=== PATIENT | female | born 1945 | race Caucasian/White ===

== ENCOUNTER → 2017-10-02 | Outpatient (REF) ==
[~2017-10-02] MED LIST: BYSTOLIC PO; CATAPRES 0.1MG0.1 MG PO; HCTZ 25MG25 MG PO; NORVASC PO; PREMARIN 1.251.25 MG PO; TRANDATE 200MG200 MG PO
== END ==
LOC: ZLAB.WCH 17:53
DX: Z01.89 Encounter for other specified special examinations (principal)

== ENCOUNTER → 2018-01-16 | Outpatient (CLI) | payer MEDICARE | LOC: COL.VAS 12:30 | DX: N18.9 Chronic kidney disease, unspecified (principal) | CPT/HCPCS: G0365 ==

== ENCOUNTER → 2018-01-17 | Outpatient (REF) ==
[2018-01-17 18:18] LABS: THYROID STIMULATING HORMONE 1.86 uIU/mL (0.465-4.680)
== END ==
LOC: ZLAB.WCH 17:38
PROVIDERS: Family Medicine
DX: Z01.89 Encounter for other specified special examinations (principal)

== ENCOUNTER 2018-08-14 10:08 | Outpatient (CLI) | payer MEDICARE ==
[2018-08-14] VITALS (9 sets, daily range): BP systolic 97–143; BP diastolic 56–68; PULSE 61–70
[~2018-08-14 10:08] MED LIST changes: -CATAPRES 0.1MG0.1 MG PO; +CATAPRES0.2 MG PO; +COREG12.5 MG PO; +CYMBALTA 30MG30 MG PO; +CYMBALTA 60MG60 MG PO; +GENTAMICIN TOPI15 GM TP; +LIPITOR 40MG TA40 MG PO; +MIRAPEX 0.0.125 MG/T PO; +NORVASC 10MG10 MG PO; -NORVASC PO; +PLAVIX 75MG TAB75 MG PO; +VENTOLIN0.09 MG IH
--- NOTE | 2018-08-14 11:39 | NUR ---
ALL MEDICATIONS GIVEN WITH VORB WITH MD. SEE MERGE FOR ALL MEDICATION ADMIN TIMES. SEE MERGE FOR ALL RASS ASSESSMENTS DURING AND POST PROCEDURE.
--- NOTE | 2018-08-14 12:25 | NUR ---
PT BACK TO ROOM 12 POST AV FISTULOGRAM. VSS AND AX0X3. BAND AID C/D/I TO LEFT ARM FISTULA SITE. RESTING COMFORTABLY IN BED AT THIS TIME.
--- NOTE | 2018-08-14 14:39 | NUR ---
PT VSS AND AX0X3 POST AV FISTULOGRAM. LEFT ARM SITE C/D/I. DISCHARGE INSTRUCTIONS REVIEWED AND SIGNED. 20 G REMOVED FROM RIGHT AC WITHOUT ISSUE. PT WHEELED OUT SAFELY VIA WHEELCHAIR WHERE CELL REPAIRER BROUGHT HER HOME.
== END 2018-08-14 14:39 | disposition home or self-care (01) ==
LOC: COL.CAR 10:08
DX: T82.858A Stenosis of other vascular prosthetic devices, implants and grafts, initial encounter (principal); N18.6 End stage renal disease; F17.210 Nicotine dependence, cigarettes, uncomplicated; Z90.710 Acquired absence of both cervix and uterus; Z88.8 Allergy status to other drugs, medicaments and biological substances
CPT/HCPCS: J1644; J2250; J3010; Q9967

== ENCOUNTER 2019-12-26 09:57 | Outpatient (CLI) | payer MEDICARE ==
[~2019-12-26] VITALS: Ht 165.1 cm; Wt 52.0 kg
[2019-12-26] VITALS (8 sets, daily range): BP systolic 150–162; BP diastolic 62–72; PULSE 62–72; TEMP 98.3
--- NOTE | 2019-12-26 13:12 | NUR ---
SEE MERGE DOCUMENTATION FOR MEDICATION ADMINISTRATION AND INTRA/POST PROCEDURE SEDATION ASSESSMENTS.
--- NOTE | 2019-12-26 14:20 | NUR ---
Report from Ange DIAZ. Transferred from lab technician by bed. Bandaid to left upper arm fistula CD&I, bruit and trill noted with strong pulses. Denies pain and needs at this time. VSS
--- NOTE | 2019-12-26 16:30 | NUR ---
INT discontinued intact. Discharge instructions given
== END 2019-12-26 16:30 | disposition home or self-care (01) ==
LOC: COL.CAR
DX: T82.858A Stenosis of other vascular prosthetic devices, implants and grafts, initial encounter (principal); N18.6 End stage renal disease; Z99.2 Dependence on renal dialysis; F17.210 Nicotine dependence, cigarettes, uncomplicated; Z90.710 Acquired absence of both cervix and uterus; Z88.8 Allergy status to other drugs, medicaments and biological substances; Z79.02 Long term (current) use of antithrombotics/antiplatelets
CPT/HCPCS: J1200; J1644; J2250; J3010; Q9967